=== PATIENT | female | born 1985 | race Caucasian/White ===

== ENCOUNTER 2019-03-29 07:20 | Outpatient (CLI) | payer OTHER, SELFPAY ==
[2019-03-29 09:02] LABS: Glucose 1 Hour PP 50gm Dose 84 mg/dL
[2019-03-29 13:01] LABS: Basophils Percent Auto 0.4 % (0.2-1.2); Eosinophils Absolute Auto 0.1 K/mm3 (0-0.3); Eosinophils Percent Auto 1.5 % (0-4.4); Hematocrit 34.4 % (37.0-47.0); Hemoglobin 11.6 g/dL (12.0-15.0); Immature Granulocyte Percent A 1.3 % (0-0.5); Lymphocytes Absolute Auto 1.63 K/mm3 (0.9-3.2); Lymphocytes Percent Auto 21.7 % (18.3-44.2); Mean Corpuscular HGB Conc 33.7 g/dl (32-36); Mean Corpuscular Hemoglobin 29.7 pg (26-34); Mean Corpuscular Volume 88.2 fl (80-100); Mean Platelet Volume 9.8 fl (7.4-10.4); Monocytes Absolute Auto 0.5 K/mm3 (0.1-0.6); Neutrophils Absolute Auto 5.2 K/mm3 (1.3-6.7); Neutrophils Percent Auto 69.1 % (45.5-73.1); Platelet Count Result 158 k/mm3 (150-375); Red Cell Distribution Width 14.1 % (11.5-14.5); White Blood Count 7.5 K/mm3 (4.5-10.0)
== END 2019-03-29 07:21 | disposition home or self-care (01) ==
PROVIDERS: PCP Internal Medicine; Visit Provider Obstetrics & Gynecology
DX: Z34.90 Encounter for supervision of normal pregnancy, unspecified, unspecified trimester (principal)
CPT/HCPCS: 36415; 82947; 85025

== ENCOUNTER 2019-04-01 15:54 | Outpatient (CLI) | payer OTHER, SELFPAY ==
--- NOTE | ~2019-04-01 | US_ITS ---
EXAMINATION: US OB limited DATE: 04/01/2019 16:19 INDICATION: Low lying placenta TECHNIQUE: Real-time ultrasound of the pelvis was performed. The interpreting radiologist was not pre sent for the study. COMPARISON: None. FINDINGS: There is a single living fetus in vertex presentation. The placenta is anterior and not low-lying wi th caudal margin >9 cm from the internal cervical os. Normal cervical length of 3.6 cm. heart r ate is 150 beats per minute (bpm). The amniotic fluid volume is subjectively normal. IMPRESSION: 1. Single living fetus in vertex presentation with heart rate of 150 bpm. 2. Normal anterior placenta which is not low-lying. Reviewed, dictated and finalized at location A. [employer]OP[employer] AIDE
== END 2019-04-01 15:55 | disposition home or self-care (01) ==
LOC: ANHIMG 15:55
PROVIDERS: PCP Internal Medicine; Visit Provider Obstetrics & Gynecology
DX: Z36.89 Encounter for other specified antenatal screening (principal); Z3A.00 Weeks of gestation of pregnancy not specified; O44.40 Low lying placenta NOS or without hemorrhage, unspecified trimester
CPT/HCPCS: 76815

== ENCOUNTER 2019-05-01 16:03 | Outpatient (CLI) | payer OTHER, SELFPAY ==
--- NOTE | ~2019-05-01 | US_ITS ---
US OB limited 05/01/2019 16:55 Indication: History of subchorionic bleed. Evaluate amniotic fluid. Procedure: High-resolution Limited obstetrical ultrasound Comparison: 04/01/2019 Findings: There is a single living intrauterine in vertex presentation. heart rate is 122 BPM. Placenta is anterior without previa. HETAL is normal measuring 17.7 cm. Hypodensities in the anterior margin of the placenta are likely placental lakes. Impression: 1: Single living intrauterine in vertex presentation. 2: Normal HETAL measures 17.7 cm. Reviewed, dictated and finalized at location A. Impression: 1: Single living intrauterine in vertex presentation. 2: Normal HETAL measures 17.7 cm.
== END 2019-05-01 16:04 | disposition home or self-care (01) ==
PROVIDERS: PCP Internal Medicine; Visit Provider Obstetrics & Gynecology
DX: O41.8X20 Other specified disorders of amniotic fluid and membranes, second trimester, not applicable or unspecified (principal); O46.8X2 Other antepartum hemorrhage, second trimester; Z3A.00 Weeks of gestation of pregnancy not specified
CPT/HCPCS: 76815

== ENCOUNTER 2019-05-21 10:57 | Outpatient (CLI) | payer OTHER, SELFPAY ==
[2019-05-21 11:46] LABS: Basophils Percent Auto 0.4 % (0.2-1.2); Eosinophils Absolute Auto 0.1 K/mm3 (0-0.3); Eosinophils Percent Auto 1.1 % (0-4.4); Hematocrit 35.3 % (37.0-47.0); Hemoglobin 11.9 g/dL (12.0-15.0); Lymphocytes Percent Auto 19.2 % (18.3-44.2); Mean Corpuscular HGB Conc 33.7 g/dl (32-36); Mean Corpuscular Hemoglobin 30.1 pg (26-34); Mean Corpuscular Volume 89.1 fl (80-100); Mean Platelet Volume 10.5 fl (7.4-10.4); Monocytes Absolute Auto 0.6 K/mm3 (0.1-0.6); Monocytes Percent Auto 6.4 % (2.6-8.5); Neutrophils Percent Auto 70.9 % (45.5-73.1); Platelet Count Result 155 k/mm3 (150-375); Red Blood Count 3.96 M/mm3 (4.2-5.4); Red Cell Distribution Width 13.9 % (11.5-14.5); White Blood Count 9.9 K/mm3 (4.5-10.0)
[2019-05-21 12:35] LABS: HIV 1/2 Ab P24 Ag Result Negative (Negative)
[2019-05-22 07:35] LABS: Rapid Plasma Reagin Non-Reactive (NonReactive)
== END 2019-05-21 10:58 | disposition home or self-care (01) ==
PROVIDERS: PCP Internal Medicine; Visit Provider Obstetrics & Gynecology
DX: Z34.83 Encounter for supervision of other normal pregnancy, third trimester (principal)
CPT/HCPCS: 36415; 85025; 86592; 86703; G0432

== ENCOUNTER 2019-05-28 12:32 | Outpatient (CLI) | payer OTHER, SELFPAY ==
--- NOTE | ~2019-05-28 | US_ITS ---
EXAMINATION: US OB follow up DATE: 05/28/2019 13:21 INDICATION: Growth. Third trimester. TECHNIQUE: Real-time ultrasound of the pelvis was performed. COMPARISON: Ultrasound 05/01/2019, 11/14/2018 FINDINGS: There is a single living fetus in vertex presentation. The placenta is anterior. heart rate is 145 beats per minute (bpm). The amniotic fluid index is 22.5 cm, which is normal. The following biometric data were obtained: Biparietal diameter (BPD): 8.9 cm; head circumference (HC): 32.4 cm; abdominal circumference (AC): 31 .9 cm; femur length (FL): 6.6 cm. These measurements are concordant. Estimated weight is 2682 g +/- 402 g, which correlates with 39th percentile when 06/26/19 is used as estimated date of delivery. As single measurements, these parameters are each equal to the following estimated gestational ages: BPD: 35 weeks 6 days. HC: 36 weeks 4 days. AC: 35 weeks 6 days. FL: 34 weeks 0 days. estimated gestational age based solely on measurements from this exam is 35 weeks 4 days +/- 2 weeks 3 days. IMPRESSION: 1. Single living fetus in vertex presentation. 2. Estimated weight is 2682 g +/- 402 g, which correlates with 39th percentile when 06/26/19 is used as estimated date of delivery. Note that the first ultrasound on 11/14/2018 demonstrated an estim ated date of delivery of 07/01/2019. Reviewed, dictated and finalized at location A. IMPRESSION: 1. Single living fetus in vertex presentation. 2. Estimated weight is 2682 g +/- 402 g, which correlates with 39th perc entile when 06/26/19 is used as estimated date of delivery. Note that the first u ltrasound on 11/14/2018 demonstrated an estimated date of delivery of 07/01/2019.
== END 2019-05-28 12:33 | disposition home or self-care (01) ==
PROVIDERS: PCP Internal Medicine; Visit Provider Obstetrics & Gynecology
DX: Z34.90 Encounter for supervision of normal pregnancy, unspecified, unspecified trimester (principal); Z3A.35 35 weeks gestation of pregnancy
CPT/HCPCS: 76816

== ENCOUNTER 2019-06-18 12:16 | Outpatient (CLI) | payer OTHER, SELFPAY ==
--- NOTE | ~2019-06-18 | US_ITS ---
EXAMINATION: US OB limited w BPP DATE: 06/18/2019 13:54 CDT INDICATION: decelerations. TECHNIQUE: Real-time transabdominal obstetric ultrasound. FINDINGS: Comparison to 05/28/2019 There is a single living fetus in vertex presentation. The placenta is anterior without placenta pre via. cardiac activity and movement is noted with a heart rate of 138 beats per minute. A FI is normal measuring 11.4 cm. Biophysical profile: breathin of 2 movement: 2 of 2 tone: 2 of 2 Amniotic flud pocket: 2 of 2 Total score: 8 of 8 IMPRESSION: 1. Single living intrauterine in vertex presentation. 2: Total biophysical profile score of 8/8. 3: HETAL measures 11.4 cm. Reviewed, dictated and finalized at location A.
[2019-06-18 12:45] VITALS: BP 131/75; PULSE 70
[2019-06-18 12:46] LABS: Basophils Percent Auto 0.4 % (0.2-1.2); Eosinophils Absolute Auto 0.1 K/mm3 (0-0.3); Hematocrit 35.4 % (37.0-47.0); Immature Granulocyte Absolute 0.23 K/mm3 (0.00-0.031); Immature Granulocyte Percent A 2.3 % (0-0.5); Lymphocytes Absolute Auto 1.95 K/mm3 (0.9-3.2); Lymphocytes Percent Auto 19.6 % (18.3-44.2); Mean Corpuscular HGB Conc 33.9 g/dl (32-36); Mean Corpuscular Hemoglobin 30.2 pg (26-34); Mean Corpuscular Volume 88.9 fl (80-100); Mean Platelet Volume 10.3 fl (7.4-10.4); Monocytes Absolute Auto 0.6 K/mm3 (0.1-0.6); Monocytes Percent Auto 5.5 % (2.6-8.5); Neutrophils Absolute Auto 7.1 K/mm3 (1.3-6.7); Neutrophils Percent Auto 71.2 % (45.5-73.1); Platelet Count Result 151 k/mm3 (150-375); Red Blood Count 3.98 M/mm3 (4.2-5.4); Red Cell Distribution Width 13.7 % (11.5-14.5)
[2019-06-18 12:52] LABS: Add Urine Microscopic? YES; Appearance Urine Cloudy (Clear); Bacteria Urine Trace /hpf; Bilirubin Urine Negative (Negative); Blood Urine 1+ (Negative); Color Urine Yellow (Yellow); Glucose Urine UA Negative (Negative); Ketones Urine Negative (Negative); Leukocyte Esterase Ur Negative LEU/UL (NEGATIVE); Mucus Urine Rare /lpf; Nitrate Urine Negative (Negative); Protein Urine Negative (Negative); RBC Urine 0-2 /hpf (0-2); Specific Grav Ur 1.019 (1.001-1.035); Squamous Epithelial Cell Urine Rare /hpf (Few); Urobilinogen Urine Negative mg/dL (<2.0); WBC Urine 0-3 /hpf (0-3)
[2019-06-18 12:54] LABS: Creatinine Urine 117.3 mg/dL; Total Protein Urine Random 11 mg/dL
[2019-06-18 12:58] LABS: Alanine Aminotransferase 15 U/L (4-35); Albumin Level 3.8 g/dL (3.5-5.1); Alkaline Phosphatase 72 U/L (38-126); Aspartate Amino Transferase 22 U/L (14-36); Bilirubin,Total 0.2 mg/dL (0.2-1.3); Blood Urea Nitrogen 10 mg/dL (7-17); Calcium 8.9 mg/dL (8.4-10.2); Carbon Dioxide 23 mmol/L (22-30); Chloride 105 mmol/L (98-107); Estimated Glomerular Filt Rate > 60; Glucose 97 mg/dL (65-105); Sodium 135 mmol/L (137-145); Uric Acid 4.4 mg/dL (2.5-7.5)
[2019-06-18 13:00] VITALS: BP 123/71; PULSE 70
[2019-06-18 13:15] VITALS: BP 123/79; PULSE 69
[2019-06-18 13:22] VITALS: BP 123/79; PULSE 71
--- NOTE | 2019-06-18 13:22 | PC.NURSE ---
Informed Dr. Reese of questionable deceleration noted on monitor. Tracing reviewed on unit. BPP and HETAL ordered.
--- NOTE | 2019-06-18 13:22 | PC.NURSE ---
Called Dr. Reese with lab results and BPs. At bedside to discuss plan of care with pt.
--- NOTE | 2019-06-18 13:30 | PC.NURSE ---
Pt to ultrasound per wheelchair.
== END 2019-06-18 14:00 | disposition home or self-care (01) ==
LOC: ANHOBOP 12:20 → ANHOBPP 12:22
PROVIDERS: Student in an Organized Health Care Education/Training Program; PCP Internal Medicine; Visit Provider Obstetrics & Gynecology
DX: O13.9 Gestational [pregnancy-induced] hypertension without significant proteinuria, unspecified trimester (principal)
CPT/HCPCS: 36415; 59025; 76815; 76819; 80053; 81001; 82570; 84156; 84550; 85025; 87086; 99199

== ENCOUNTER 2019-06-25 12:29 | Inpatient (IN) | payer OTHER, SELFPAY ==
[2019-06-25] VITALS (55 sets, daily range): BP systolic 97–140; BP diastolic 58–88; PULSE 57–200; TEMP 37.4; O2SAT 99–100; BMI 28.4
--- NOTE | 2019-06-25 12:59 | LDADM ---
This patient, Jennifer Ying, was admitted to Labor/Delivery/Recovery 103 on 06/25/19 at 12:29. Plans for labor, pain management and were discussed with patient. Patient/family oriented to hospital policies and general routines including ID bracelet, bed and alarms, visiting hours, pain management, procedures, bathroom and other care routines, personal items, smoking policy, room service/diet and guest tray routines, security routines, and visiting hours. Patient/Family are encouraged to report perceived risks to care and to ask questions if they do not understand what they are told or what they should do. See OBIX for further documentation.
--- NOTE | 2019-06-25 13:18 | PM.IMHP ---
H&P: HPI History of Present Illness Chief complaint: iol Narrative: Jennifer Ying is a 34 year old female at 39 6/7 by sure LMP 09/19/18 with EDC 06/26/19 consistent with 7 week ultrasound. PNC significant for gestational hypertension, she had her second elevated bp in office today 150/84 repeat 142/98. Her first elevated blood pressure was last week and she had labs and testing which were normal. GBS positive. She denies headache, scotomata or RUQ pain. She had a history of subchorionic hemorrhage which resolved in second trimester. Has had normal growth ultrasounds. She was recommended for delivery due increase risk of maternal and due to gestational hypertension and continued at this gestation. She agreed with induction. Labs: O+,Rub-Im, h/h ,Hepbsag-neg, Tsh-nl, HIVneg, HCV ab-neg, vit D 45, Ur cx-neg, Hemoglobinopathy screen normal, GBS positive, 1 hour glucola- 84, h/h 11. Review of Systems Review of Systems: All systems reviewed & are unremarkable except as noted in HPI and below Constitutional: Constitutional: Reports no additional constitutional complaints and Denies headache(s) Eyes: Eyes: Denies spots in vision ENT: Reports system reviewed and no additional complaints, except as documented and Denies headache(s) Cardiovascular: Cardiovascular: Denies chest pain and Denies dyspnea Respiratory: Respiratory: Denies dyspnea Gastrointestinal: Gastrointestinal: Reports no additional gastrointestinal complaints Genitourinary: Genitourinary: Reports amenorrhea Musculoskeletal: Musculoskeletal: Reports no additional musculoskeletal complaints Integumentary/Breasts: Skin/Breast: Denies breast mass and Denies rash Neurologic: Denies headache(s) Psychiatric: Psychiatric: Reports no additional psychiatric complaints [facility] Past Medical History Medical History (Updated 06/25/19 @ 13:23 by Theron Reese MD) Abnormal Pap smear of cervix Encounter for supervision of other normal , third trimester Gestational hypertension affecting third Surgical History Surgical History [place] teeth removed Family History Family History Father Diabetes mellitus Family history of hypercholesterolemia Hypertension Mother Asthma Social History Social History Smoking status: Never smoker Second hand tobacco smoke exposure: No Alcohol intake: never Substance use: never Gender identity (if verbalized by the patient): Female Spiritual care concerns: No Meds Home Medications and Allergies Home Medications Medication Instructions Recorded Confirmed Type vits,calcium 91-iron 28 11 pkg PO DAILY 01/21/19 06/25/19 History mg-folic 975 mcg-dha 200 mg oral pack albuterol sulfate 2.5 mg INHALATION Q4-6H PRN #75 ml 02/26/19 06/25/19 Rx Allergies Allergy/AdvReac Type Severity Reaction Status Date / Time No Known Allergies Allergy Verified 06/25/19 12:01 Exam Const: General: no acute distress Eyes: General: appearance normal, both eyes and all related structures Resp: Effort & Inspection: normal respiratory effort Cardio: Rate: regular rate GI: Other: Gravid no fundal tenderness no right upper quadrant pain : Manual OB Exam: dilated 3 cm, effaced 50% and station -2 Skin: General skin exam: no rashes or lesions noted Neuro: Cognition (Neuro): normal cognition Extrem: General: normal to inspection Psych: Mental Status: mental status grossly normal Assessment and Plan Assessment and plan (1) Gestational hypertension affecting third : Code(s): O13.9 - Gestational [-induced] hypertension without significant proteinuria, unspecified trimester Status: Acute Assessment and Plan: Admit. induced hypertens
[2019-06-25 13:28] LABS: Basophils Absolute Auto 0.1 K/mm3 (0.0-0.1); Basophils Percent Auto 0.4 % (0.2-1.2); Eosinophils Absolute Auto 0.1 K/mm3 (0-0.3); Eosinophils Percent Auto 0.8 % (0-4.4); Hematocrit 36.2 % (37.0-47.0); Hemoglobin 12.4 g/dL (12.0-15.0); Immature Granulocyte Absolute 0.25 K/mm3 (0.00-0.031); Immature Granulocyte Percent A 2.2 % (0-0.5); Lymphocytes Absolute Auto 1.99 K/mm3 (0.9-3.2); Lymphocytes Percent Auto 17.8 % (18.3-44.2); Mean Corpuscular HGB Conc 34.3 g/dl (32-36); Mean Corpuscular Volume 87.4 fl (80-100); Mean Platelet Volume 10.9 fl (7.4-10.4); Monocytes Absolute Auto 0.6 K/mm3 (0.1-0.6); Monocytes Percent Auto 5.1 % (2.6-8.5); Neutrophils Absolute Auto 8.3 K/mm3 (1.3-6.7); Neutrophils Percent Auto 73.7 % (45.5-73.1); Platelet Count Result 156 k/mm3 (150-375); Red Blood Count 4.14 M/mm3 (4.2-5.4); Red Cell Distribution Width 13.6 % (11.5-14.5); White Blood Count 11.2 K/mm3 (4.5-10.0)
[2019-06-25] MEDS: LACTATED RINGERS 1,000 ML 125 ML IV CONT ×2 (13:40→18:45)
[2019-06-25] MEDS: AMPICILLIN 2 GM/NS 100 ML 2 GM/100 ML BAG IVPB (13:41)
[2019-06-25 13:46] LABS: Alanine Aminotransferase 14 U/L (4-35); Alkaline Phosphatase 73 U/L (38-126); Aspartate Amino Transferase 22 U/L (14-36); Bilirubin,Total 0.2 mg/dL (0.2-1.3); Blood Urea Nitrogen 11 mg/dL (7-17); Calcium 9.5 mg/dL (8.4-10.2); Carbon Dioxide 22 mmol/L (22-30); Chloride 105 mmol/L (98-107); Estimated CRCL calculation 131 ml/min; Estimated Glomerular Filt Rate > 60; Glucose 97 mg/dL (65-105); Potassium 3.9 mmol/L (3.4-5.0); Sodium 134 mmol/L (137-145)
[2019-06-25 14:05] LABS: Uric Acid 4.8 mg/dL (2.5-7.5)
[2019-06-25] MEDS: OXYTOCIN 30 UNITS/NS 500 ML 30 UNITS/500 ML BAG IV CONT (15:37)
--- NOTE | 2019-06-25 16:44 | WPDANESEPP ---
Anes - Eval Pre Procedure Procedure: labor epidural Date/Time: 06/25/19 16:44 Surgeon: itz Pre Op Diagnosis: iol Patient Data Age: 34 Gender: F Height: 1.83 m Weight: 95 kg Last Vital Signs Temp 37.4 C 06/25/19 15:04 Pulse 67 06/25/19 16:16 BP 127/79 06/25/19 16:16 Allergies Allergy/AdvReac Type Severity Reaction Status Date / Time No Known Allergies Allergy Verified 06/25/19 12:01 Home Medications Medication Instructions Recorded Confirmed Type vits,calcium 91-iron 28 11 pkg PO DAILY 01/21/19 06/25/19 History mg-folic 975 mcg-dha 200 mg oral pack albuterol sulfate 2.5 mg INHALATION Q4-6H PRN #75 ml 02/26/19 06/25/19 Rx Laboratory Tests 06/25/19 06/25/19 06/25/19 13:16 13:16 13:16 WBC 11.2 K/mm3 H K/mm3 (4.5-10.0) RBC 4.14 M/mm3 L M/mm3 (4.2-5.4) Hgb 12.4 g/dL g/dL (12.0-15.0) Hct 36.2 % L % (37.0-47.0) MCV 87.4 fl fl (80-100) MCH 30.0 pg pg (26-34) MCHC 34.3 g/dl g/dl (32-36) RDW 13.6 % % (11.5-14.5) Plt Count 156 k/mm3 k/mm3 (150-375) MPV 10.9 fl H fl (7.4-10.4) Immature Gran % (Auto) 2.2 % H % (0-0.5) Neut % (Auto) 73.7 % H % (45.5-73.1) Lymph % (Auto) 17.8 % L % (18.3-44.2) [place] % (Auto) 5.1 % % (2.6-8.5) Eos % (Auto) 0.8 % % (0-4.4) Baso % (Auto) 0.4 % % (0.2-1.2) Lymph # (Auto) 1.99 K/mm3 K/mm3 (0.9-3.2) [place] # (Auto) 0.6 K/mm3 K/mm3 (0.1-0.6) Eos # (Auto) 0.1 K/mm3 K/mm3 (0-0.3) Baso # (Auto) 0.1 K/mm3 K/mm3 (0.0-0.1) Abs Immat Gran (auto) 0.25 K/mm3 H K/mm3 (0.00-0.031) Absolute Neuts (auto) 8.3 K/mm3 H K/mm3 (1.3-6.7) Absolute Nucleated RBC 0.0 K/mm3 K/mm3 (0.0-0.012) Nucleated RBC % 0.0 % % (0.0-0.2) Sodium Potassium Chloride Carbon Dioxide BUN Creatinine Estim Creat Clear Calc Estimated GFR Glucose Uric Acid 4.8 mg/dL mg/dL (2.5-7.5) Calcium Total Bilirubin AST ALT Alkaline Phosphatase Total Protein Albumin RPR Pending Blood Type Antibody Screen 06/25/19 06/25/19 13:16 13:16 WBC RBC Hgb Hct MCV MCH MCHC RDW Plt Count MPV Immature Gran % (Auto) Neut % (Auto) Lymph % (Auto) [place] % (Auto) Eos % (Auto) Baso % (Auto) Lymph # (Auto) [place] # (Auto) Eos # (Auto) Baso # (Auto) Abs Immat Gran (auto) Absolute Neuts (auto) Absolute Nucleated RBC Nucleated RBC % Sodium 134 mmol/L L mmol/L (137-145) Potassium 3.9 mmol/L mmol/L (3.4-5.0) Chloride 105 mmol/L mmol/L (98-107) Carbon Dioxide 22 mmol/L mmol/L (22-30) BUN 11 mg/dL mg/dL (7-17) Creatinine 0.60 mg/dL L mg/dL (0.7-1.0) Estim Creat Clear Calc 131 ml/min ml/min Estimated GFR > 60 (59 - ) Glucose 97 mg/dL mg/dL (65-105) Uric Acid Calcium 9.5 mg/dL mg/dL (8.4-10.2) Total Bilirubin 0.2 mg/dL mg/dL (0.2-1.3) AST 22 U/L U/L (14-36) ALT 14 U/L U/L (4-35) Alkaline Phosphatase 73 U/L U/L (38-126) Total Protein 8.0 g/dL g/dL (6.3-8.2) Albumin 4.0 g/dL g/dL (3.5-5.1) RPR Blood Type O Positive Antibody Screen Negative Patient hx anesthesia problems: none Family hx anesthesia problems: none PMFSH Past Medical History Medical History (Updated 06/25/19 @ 13:23 by Theron Reese MD) Ab
[2019-06-25] MEDS: AMPICILLIN 1 GM/NS 50 ML 1 GM/50 ML BAG IVPB (17:30)
--- NOTE | 2019-06-25 21:02 | P.PCNOB_ITS ---
OB - Delivery Note Procedure Delivery date: 06/25/19 Procedure: Spontaneous vaginal delivery events: Induced HTN Intrapartal events: None Induction method: per pitocin protocol Delivery monitor: external FHT Route of delivery: Laceration description: None Specimen: No Estimated blood loss (mL): 150 Anesthesia type: Epidural Disposition: floor Complications: None. Narrative: Patient was admitted on 06/24 for medical induction due to gestational hypertension. She was started on Ampicillin for GBS prophylaxis. She received a total of two doses prior to delivery. She had spontaneous rupture of membranes. She progressed rapidly to complete dilated. She delivered a female at 8, weighing [id number]. was vigourously crying upon delivery and placed on maternal abdomen. Delayed cord clamping for 45 seconds and cord was tehn clamped and cut. Placenta delivered spontaneously and intact. No lacerations. Patient tolerated procedure well. Baby's name is Ynes. [place] Baby Date of : 06/25/19 Time of : 20:38 Weeks of gestation at delivery: 39 Infant gender: Female Weight (pounds): 6 Weight (ounces): 15 presentation: vertex position: Right Occiput Anterior Placenta delivery description: Spontaneous score one minute: 9 score five minutes: 9
[2019-06-25] MEDS: OXYTOCIN 30 UNITS/NS 500 ML 30 UNITS/500 ML BAG 125 UNITS IV CONT (21:20)
[2019-06-26] MEDS: WITCH HAZEL 40 PADS 1 PAD TOPICAL (01:31)
[2019-06-26] MEDS: BENZOCAINE 20% AER SPR (*SP) 56 GM CAN 1 SPRAY TOPICAL (01:31)
--- NOTE | 2019-06-26 01:45 | OBPPTRN ---
Patient transferred to post room #283 via wheelchair. Oriented to unit, room, information board, rooming in, admission packet and security measures. Patient verbalizes understanding.
[2019-06-26 02:00] VITALS: BP 123/79; PULSE 70; RESP 16; TEMP 36.6; O2SAT 99
[2019-06-26] MEDS: IBUPROFEN 600 MG TABLET PO ×3 (02:22→15:10)
[2019-06-26 05:28] LABS: Hematocrit 35.4 % (37.0-47.0); Hemoglobin 12.1 g/dL (12.0-15.0)
[2019-06-26] MEDS: MULTIVIT/MIN/PREN/FOL AC/IRON TABLET 1 TAB PO (07:42)
[2019-06-26] MEDS: DOCUSATE SODIUM 100 MG CAPSULE PO (07:42)
[2019-06-26 07:47] VITALS: BP 119/74; PULSE 55; RESP 18; TEMP 36.2; O2SAT 100
--- NOTE | 2019-06-26 08:43 | P.PNOB_ITS ---
OB - PN: Subj Subjective Date/time seen: 06/26/19 08:43 She desires to go home as soon as she can. Patient comments: pain well controlled, tolerating diet and other (Decreasing lochia.) [place] baby status: doing well and nursing well feeding status: exclusively breast feeding OB - PN: Obj Data Labs CBC & Chem 7: 06/26/19 05:10 06/25/19 13:16 Labs: Laboratory Results - last 24 hr 06/25/19 06/25/19 06/25/19 13:16 13:16 13:16 WBC 11.2 H RBC 4.14 L Hgb 12.4 Hct 36.2 L MCV 87.4 MCH 30.0 MCHC 34.3 RDW 13.6 Plt Count 156 MPV 10.9 H Immature Gran % (Auto) 2.2 H Neut % (Auto) 73.7 H Lymph % (Auto) 17.8 L [place] % (Auto) 5.1 Eos % (Auto) 0.8 Baso % (Auto) 0.4 Lymph # (Auto) 1.99 [place] # (Auto) 0.6 Eos # (Auto) 0.1 Baso # (Auto) 0.1 Abs Immat Gran (auto) 0.25 H Absolute Neuts (auto) 8.3 H Absolute Nucleated RBC 0.0 Nucleated RBC % 0.0 Sodium Potassium Chloride Carbon Dioxide BUN Creatinine Estim Creat Clear Calc Estimated GFR Glucose Uric Acid 4.8 Calcium Total Bilirubin AST ALT Alkaline Phosphatase Total Protein Albumin Blood Type O Positive Antibody Screen Negative 06/25/19 06/26/19 13:16 05:10 WBC RBC Hgb 12.1 Hct 35.4 L MCV MCH MCHC RDW Plt Count MPV Immature Gran % (Auto) Neut % (Auto) Lymph % (Auto) [place] % (Auto) Eos % (Auto) Baso % (Auto) Lymph # (Auto) [place] # (Auto) Eos # (Auto) Baso # (Auto) Abs Immat Gran (auto) Absolute Neuts (auto) Absolute Nucleated RBC Nucleated RBC % Sodium 134 L Potassium 3.9 Chloride 105 Carbon Dioxide 22 BUN 11 Creatinine 0.60 L Estim Creat Clear Calc 131 Estimated GFR > 60 Glucose 97 Uric Acid Calcium 9.5 Total Bilirubin 0.2 AST 22 ALT 14 Alkaline Phosphatase 73 Total Protein 8.0 Albumin 4.0 Blood Type Antibody Screen OB - PN A/P Plan day: 1 Plan: routine care Comments: Patient doing well. Anticipate discharge later today if peds allow discharge of the baby. Discharge precautions discussed. Time Spent With Patient Time: Total time spent is greater than 50% in coordination of care (as documented) at patient's floor/unit and/or counseling patient: Exam Psych: Affect: normal affect Other: Abd: fundus firm below umbilicus, nontender Perineum: healing Ext: nontender
[2019-06-26 09:29] LABS: Rapid Plasma Reagin Non-Reactive (NonReactive)
--- NOTE | 2019-06-26 09:30 | PC.NURSE ---
Consult with pt., mother verbalizes she is able to independently latch infant with appropriate positioning/alignment. She denies any nipple discomfort, is feeding as required and waking infant to feed if needed. is currently meeting outcomes for weight, output, jaundice and feeding frequencies. Reviewed feeding cues, frequencies, duration of feedings, feeding elimination flow sheet, and signs of adequate intake. Mother voiced understanding of information shared. Mother is feeding as required and waking to feed if needed. Mother states she feels confident to continue effective at home. Reviewed transition to breast milk, signs of adequate intake, and engorgement/relief. Instructed to call ICP if intake/output less than required. Reviewed community resources on the [facility] website and in the Mom/Baby guide. Information on outpatient services provided. Mother has no further questions at this time. Instructed mother to call out for future feedings if assistance is needed.
--- NOTE | 2019-06-26 10:35 | PC.NURSE ---
Addendum entered by Farrah Santana RN 06/26/19 12:51: Wrong pt. Original Note: Patient transferred to post room #287 via wheelchair. Support person present. Oriented to unit, room, information board, rooming in, admission packet and security measures. Patient verbalizes understanding.
[2019-06-26 19:15] VITALS: BP 132/78; PULSE 69; RESP 16; TEMP 36.9; O2SAT 98
[2019-06-28 11:20] VITALS: BP 125/81; PULSE 69; RESP 18; TEMP 36.8
--- NOTE | 2019-07-26 13:00 | PM.OBDSVD ---
DS: Admitting Diagnosis Admitting Diagnosis Admitting Diagnosis: Encounter for supervision of normal , unspecified, third trimester OB - DS: Summary OB Procedures : Ultrasound OB Procedures Intrapartum: Spontaneous Vag Delivery OB Procedures: : None Time Spent with Patient Time attestation: Total time spent providing and/or coordinating discharge services: Exam Psych: Affect: normal affect Other: Abd: fundus firm below umbilicus, nontender Perineum: healing Ext: nontender Discharge Plan Discharge Attending physician on discharge: Theron Reese Discharging Clinician: Theron Reese Anticipated Discharge Date/Time: 06/26/19 20:45 Patient Disposition: Home, Self-Care Activity: pelvic rest Diet: regular Discharge Instructions: Routine precautions. Pelvic rest for 4-6 weeks. Call for fever, saturating more than a pad an hour, leg pain and swelling. May take over the counter Tylenol or Motrin for pain. Take daily vitamins. Education: Mom and Baby Guide Given to: Mother Follow-Up: Call your delivering provider's office for an appointment to be seen in: 1 Week Mom and baby should come to the [facility] for the follow-up appointment. Appointment Date/Time: June 28, 2019 at 11:00 am What to expect at your follow-up visit: Blood Pressure Check Physical Assessment Call [phone] if you are unable to keep your appointment time. BREAST CARE: 1. Wear a snug supportive bra. 2. For engorgement discomfort: Breast Feeding: A. Apply warm moist washcloths B. Express milk as needed to relieve engorgement C. Wear loose clothing 3. For sore nipples: A. Identify correct latch-on B. Apply warm moist washcloths before and after nursing C. Air dry nipples after nursing D. May apply Lansinoh cream to nipples EPISIOTOMY/PERINEAL CARE: 1. Until bleeding stops, use your serjio bottle after urinating 2. Change your pad frequently throughout the day 3. You may take sitz baths several times a day (fill your bathtub with warm water and soak for 20 minutes.) Do NOT bathe in the water 4. No tub baths until seen by your physician - You may shower ACTIVITY: 1. Rest as much as possible. 2. Do not exercise or lift anything heavier than your baby (such as laundry or other children.) 3. Avoid stairs or driving as much as possible. 4. Do not put anything into the vagina. No douching, tampons, or sexual activity until seen by physician. NOTIFY PHYSICIAN IF YOU HAVE ANY QUESTIONS OR IF ANY OF THE FOLLOWING SYMPTOMS OCCUR: .1. If your vaginal bleeding becomes foul smelling. 2. If your vaginal bleeding becomes more heavy than a period or if your bleeding changes from pink to bright red. However, you may pass an occasional walnut-sized clot once or twice for the first week . 3. If you experience a sharp, shooting pain in you calves. .4. If you discover a hard, reddened area on your breast or if you experience flu-like symptoms. DIET: 1. Eat regular, well-balanced meals. 2. Drink plenty of fluids daily. If , drink to thirst. Stand Alone Forms: General Discharge Information Follow-up/Referrals: Theron Reese MD [Physician] - 4 Weeks (Call for appointment.) Discharge Medications: Continued + DHA 28 mg iron- 975 mcg-200 mg combo pack 11 pkg PO DAILY RF: 0 albuterol sulfate 2.5 mg /3 mL (0.083 %) solution for nebulization 2.5 mg INHALATION Q4-6H PRN (Reason: shortness of breath or wheezing) Qty: 75 RF: 0 Date of admission: 06/25/19 12:29 Primary Care Provider: Donn Cortez Admitting Provider: Theron Reese Discharge Date/Time: 06/26/19 22:45 Attending physician on admission: Theron Reese
== END 2019-06-26 22:45 | disposition home or self-care (01) | DRG 807 ==
LOC: ANHLDR 12:33 → ANHOB2 06-26 01:55
PROVIDERS: Admitting Provider Obstetrics & Gynecology; PCP Internal Medicine; Visit Provider Obstetrics & Gynecology
DX: O13.4 Gestational [pregnancy-induced] hypertension without significant proteinuria, complicating childbirth (principal); Z37.0 Single live birth; Z3A.39 39 weeks gestation of pregnancy; O99.824 Streptococcus B carrier state complicating childbirth; O62.3 Precipitate labor
CPT/HCPCS: 36415; 80053; 84550; 85014; 85018; 85025; 86592; 86850; 86900; 86901; A9270; J0290; J2590; J2795; J7120

== ENCOUNTER → 2019-10-23 12:02 | Outpatient (CLI) | payer OTHER, SELFPAY ==
--- NOTE | ~2019-10-23 | XR_ITS ---
EXAMINATION: XR chest 2V DATE: 10/23/2019 12:18 INDICATION: Productive cough TECHNIQUE: Frontal and lateral views of the chest are obtained COMPARISON: 06/21/2017 FINDINGS: The lungs are free of acute opacities. There is no pleural effusion or pneumothorax. The ca rdiomediastinal silhouette is normal. The visualized bones and soft tissues are unremarkable. IMPRESSION: 1. No acute cardiopulmonary abnormality. Reviewed, dictated and finalized at location A.
== END ==
PROVIDERS: PCP Internal Medicine; Visit Provider Clinical Nurse Specialist
DX: R05 Cough (principal)
CPT/HCPCS: 71046

== ENCOUNTER 2020-03-24 06:52 | Outpatient (NON) | payer OTHER, SELFPAY ==
[2020-03-25 00:37] LABS: SARS-CoV-2 RNA PCR Negative
== END 2020-03-24 06:53 ==
PROVIDERS: PCP Internal Medicine; Visit Provider Clinical Nurse Specialist
DX: Z01.812 Encounter for preprocedural laboratory examination (principal); Z20.822 Contact with and (suspected) exposure to COVID-19
CPT/HCPCS: C9803; U0003; U0005

== ENCOUNTER → 2020-12-15 16:32 | Outpatient (REF) | payer OTHER, SELFPAY | LOC: ANHLAB 16:32 | PROVIDERS: PCP Internal Medicine; Visit Provider Nurse Practitioner | DX: D22.5 Melanocytic nevi of trunk (principal) | CPT/HCPCS: 88305 ==

== ENCOUNTER → 2021-04-08 02:11 | Outpatient (CLI) | payer OTHER, SELFPAY ==
[2021-04-08 16:52] LABS: SARS-CoV-2 RNA PCR Negative
== END ==
PROVIDERS: PCP Internal Medicine; Visit Provider Internal Medicine
DX: R05.9 Cough, unspecified (principal); Z20.822 Contact with and (suspected) exposure to COVID-19
CPT/HCPCS: C9803; U0003; U0005

== ENCOUNTER 2021-12-21 12:35 | Outpatient (CLI) | payer OTHER, SELFPAY ==
[2021-12-22 08:41] LABS: Kit Draw Collected
== END 2021-12-21 12:36 | disposition home or self-care (01) ==
LOC: ANHGOSHLAB 12:37
PROVIDERS: PCP Internal Medicine; Visit Provider Clinical Nurse Specialist
DX: R00.2 Palpitations (principal); E55.9 Vitamin D deficiency, unspecified; Z13.29 Encounter for screening for other suspected endocrine disorder
CPT/HCPCS: 36415

== ENCOUNTER → 2022-04-07 11:13 | Outpatient (CLI) | payer OTHER, SELFPAY ==
--- NOTE | ~2022-04-07 | US_ITS ---
US soft tissue UE LT 04/07/2022 11:26 Indication: Left upper arm lump for 8 months Procedure: High-resolution Limited ultrasound of the left upper extremity in the area of palpable con cern. Comparison: No prior studies for comparison. Findings: There is an oval isoechoic mass with horizontal oriented internal striations measuring 1.6 x 1.6 x 1 cm. No internal vascularity or significant posterior features. Impression: 1: Oval isoechoic 1.6 cm left upper extremity mass, most likely benign lipoma. Consider follow-up in 6-12 months or as otherwise clinically indicated. Reviewed, dictated and finalized at location A. 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 Consider follow-up in 6-12 months or as otherwise clinically indicated.
== END ==
PROVIDERS: PCP Internal Medicine; Visit Provider Nurse Practitioner
DX: R22.9 Localized swelling, mass and lump, unspecified (principal)
CPT/HCPCS: 76882

== ENCOUNTER 2023-03-24 10:39 | Outpatient (CLI) | payer OTHER, SELFPAY ==
[2023-03-24 18:58] LABS: Basophils Absolute Auto 0.1 K/mm3 (0.0-0.1); Eosinophils Absolute Auto 0.2 K/mm3 (0-0.3); Eosinophils Percent Auto 2.8 % (0-4.4); Hemoglobin 13.4 g/dL (12.0-15.0); Immature Granulocyte Absolute 0.01 K/mm3 (0.00-0.031); Immature Granulocyte Percent A 0.2 % (0-0.5); Lymphocytes Absolute Auto 2.12 K/mm3 (0.9-3.2); Lymphocytes Percent Auto 34.7 % (18.3-44.2); Mean Corpuscular HGB Conc 31.9 g/dl (32-36); Mean Corpuscular Hemoglobin 28.6 pg (26-34); Mean Corpuscular Volume 89.6 fl (80-100); Mean Platelet Volume 10.2 fl (7.4-10.4); Monocytes Absolute Auto 0.3 K/mm3 (0.1-0.6); Monocytes Percent Auto 5.4 % (2.6-8.5); Neutrophils Absolute Auto 3.4 K/mm3 (1.3-6.7); Neutrophils Percent Auto 55.9 % (45.5-73.1); Platelet Count Result 178 k/mm3 (150-375); Red Blood Count 4.69 M/mm3 (4.2-5.4); Red Cell Distribution Width 12.8 % (11.5-14.5); White Blood Count 6.1 K/mm3 (4.5-10.0)
[2023-03-24 19:53] LABS: Alanine Aminotransferase 17 U/L (6-35); Albumin Level 4.6 g/dL (3.5-5.1); Alkaline Phosphatase 44 U/L (38-126); Anion Gap 9 mmol/L (8-16); Aspartate Amino Transferase 38 U/L (14-36); Bilirubin,Total 0.4 mg/dL (0.2-1.3); Blood Urea Nitrogen 19 mg/dL (7-17); Calcium 9.3 mg/dL (8.4-10.2); Carbon Dioxide 25 mmol/L (22-30); Chloride 105 mmol/L (98-107); Cholesterol 153 mg/dL (0-200); Estimated Glomerular Filt Rate > 60; Glucose 89 mg/dL (65-110); HDL Direct 52 mg/dL; Potassium 3.7 mmol/L (3.4-5.0); Sodium 139 mmol/L (137-145); Triglycerides 52 mg/dL (<150)
[2023-03-24 20:06] LABS: LDL Cholesterol Direct 91 mg/dL
== END 2023-03-24 10:40 | disposition home or self-care (01) ==
LOC: ANHGOSHLAB 10:41
PROVIDERS: PCP Internal Medicine; Visit Provider Nurse Practitioner
DX: Z13.228 Encounter for screening for other metabolic disorders (principal); Z13.220 Encounter for screening for lipoid disorders; E55.9 Vitamin D deficiency, unspecified
CPT/HCPCS: 36415; 80053; 80061; 82306; 85025

== ENCOUNTER 2023-12-05 10:31 | Outpatient (CLI) | payer OTHER, SELFPAY ==
--- NOTE | ~2023-12-05 | XR_ITS ---
EXAMINATION: XR ankle LT min 3V, [id number] DATE: 12/05/2023 10:53 INDICATION: Left ankle injury with posterior and lateral left foot and ankle pain TECHNIQUE: 1. Anteroposterior, oblique, mortise, and lateral views of the left ankle were obtained. 2. Standing dorsal plantar, lateral and oblique views of the left foot were obtained. COMPARISON: None. FINDINGS: Mild pes planus. Alignment of the left foot and ankle is otherwise normal. There are small corticated ossicles near the tip the medial and lateral malleoli, likely sequela of chronic ankle sprains. No a cute fracture. 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 IMPRESSION: 1. 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 No acute osseous abnormality. Reviewed, dictated and finalized at location A. IMPRESSION: 1. Small heterotopic ossicles near the tips of the medial and lateral malleoli, likely sequela of chronic medial and lateral ankle sprains. No acute osseous a bnormality.
== END 2023-12-05 10:32 | disposition home or self-care (01) ==
LOC: GOSHIMG 10:32
PROVIDERS: PCP Internal Medicine; Visit Provider Clinical Nurse Specialist
DX: S99.912A Unspecified injury of left ankle, initial encounter (principal); S99.922A Unspecified injury of left foot, initial encounter; X58.XXXA Exposure to other specified factors, initial encounter; W19.XXXA Unspecified fall, initial encounter
CPT/HCPCS: 73610; 73630